=== PATIENT | female | born 1955 | race Caucasian/White ===

== ENCOUNTER 2017-02-18 05:52 | Day surgery (SDC) | payer BC ==
--- NOTE | ~2017-02-18 | EGD ---
EGD REPORT [facility] [address] [place] [id number] NAME: EMILY BEY : [birth year] STATUS : REG [facility]#: [id number] AGE: 61 ADM/REG DATE : 02/18/17 MR#: [id number] REPORT SERV DATE: 02/18/17 DICTATED BY: DATE: REPORT STATUS : Draft [facility]ANSCRIBED BY: [facility] DATE: 02/18/17 [facility] Patient Name: Emily Bey Date of : 1955 Attending MD: BA WARE MD Procedure Date No Time: 02/18/2017 Procedure: Colonoscopy Indications: High risk colon CA surveillance: Personal history multiple (3 or more) adenomas Medicines: Monitored Anesthesia Care Complications: No immediate complications. Procedure: Pre-Anesthesia Assessment: - ASA Grade Assessment: III - A patient with severe systemic disease. After I obtained informed consent, the scope was passed under direct vision. Throughout the procedure, the patient's blood pressure, pulse, and oxygen saturations were monitored continuously. The PCF [id number] was introduced through the anus and advanced to the cecum, identified by appendiceal orifice and ileocecal valve. The colonoscopy was somewhat difficult due to significant looping. Successful completion of the procedure was aided by using manual pressure. The patient tolerated the procedure well. The quality of the bowel preparation was adequate to identify polyps. Findings: The perianal and digital rectal examinations were normal. Two sessile polyps were found in the ascending colon. The polyps were 3 to 12 mm in size. These polyps were removed with a cold snare. Resection and retrieval were complete in piecemeal fashion. No other significant abnormalities were identified in a careful examination of the remainder of the colon. There is no endoscopic evidence of diverticula, inflammation, mass or ulcerations in the entire colon. There was evidence of a prior surgical anastomosis in the distal rectum. This was characterized by healthy appearing mucosa. No additional abnormalities were found on retroflexion. Impression: - Two 8 to 12 mm polyps in the ascending colon. Resected and retrieved in piecemeal fashion. - Surgical anastomosis. Recommendation: - Patient has a contact number available for emergencies. The signs and symptoms of potential delayed EGD REPORT [address] [address] NAME: EMILY BEY : [birth year] STATUS : REG [facility] [place] PAT#: [id number] AGE: 61 ADM/REG DATE : 02/18/17 MR#: [id number] REPORT SERV DATE: 02/18/17 DICTATED BY: DATE: REPORT STATUS : Draft TRANSCRIBED BY: [employer] DATE: 02/18/17 complications were discussed with the patient. Return to normal activities tomorrow. Written discharge instructions were provided to the patient. - Return to previous diet. - Discharge patient to home. - Continue present medications. - Await pathology results. - Repeat colonoscopy in 2 years for surveillance after piecemeal polypectomy. Procedure Code(s): --- Professional --- 82107, Colonoscopy, flexible, proximal to splenic flexure; with removal of tumor(s), polyp(s), or other lesion(s) by snare technique Diagnosis Code(s): --- Professional --- D12.2, Benign neoplasm of ascending colon Z98.0, Intestinal bypass and anastomosis status Z86.010, Personal history of colonic polyps CPT copyright 2013 [employer]. All rights reserved. The codes documented in this report are preliminary and upon him coder review may be revised to meet current compliance requirements. BA WARE MD 02/18/2017 8:56 AM This report has been signed electronically. Number of Addenda: 0 Note Initiated On: 02/18/2017 8:07 AM Scope Withdrawal Time 0 hours 28 minutes 51 seconds [id number] [place] [id number]
[~2017-02-18 05:52] MED LIST: AMITIZA8 MCG PO; ASAB PO; BENTYL10 PO; CALTRAT600 PO; CITRUCEL500 MG PO; COZ50 PO; CRESTOR5 MG PO; CYMBALTA60 PO; EXCEDRIN TENSI1 EACH PO; FLECTOR1.3 % TOP; FLEX PO; FLURBIPROFEN100 MG PO; HUMAPUMP SC; LIBRAX PO; LIPITOR20 PO; LOP25 PO; MACRO50B PO; METHOC750B PO; MOBIC15 MG PO; NEUR100 PO; NEXIUM40 PO; PROBIOTIC PO; T PO; TRAZ100 PO; TRILIPIX135 MG PO; ULTRAM50 PO; VITAMIN D31000 UNIT PO; VITD PO
== END 2017-02-18 23:59 | disposition home or self-care (01) ==
LOC: DMU 05:52
PROVIDERS: Internal Medicine Gastroenterology
PROC: 0DBK8ZX Excision of Ascending Colon, Via Natural or Artificial Opening Endoscopic, Diagnostic (ICD-10-PCS; principal; 2017-02-18 07:30)
DX: Z12.11 Encounter for screening for malignant neoplasm of colon (principal); D12.2 Benign neoplasm of ascending colon; E66.01 Morbid (severe) obesity due to excess calories; I10 Essential (primary) hypertension; K21.9 Gastro-esophageal reflux disease without esophagitis; E11.8 Type 2 diabetes mellitus with unspecified complications; G47.33 Obstructive sleep apnea (adult) (pediatric); M79.7 Fibromyalgia; Z98.0 Intestinal bypass and anastomosis status; Z86.010 Personal history of colon polyps; Z86.73 Personal history of transient ischemic attack (TIA), and cerebral infarction without residual deficits; Z99.89 Dependence on other enabling machines and devices; Z88.2 Allergy status to sulfonamides; Z88.5 Allergy status to narcotic agent; Z79.899 Other long term (current) drug therapy; Z79.4 Long term (current) use of insulin; Z98.41 Cataract extraction status, right eye; Z98.42 Cataract extraction status, left eye; Z90.89 Acquired absence of other organs; Z98.51 Tubal ligation status; Z90.710 Acquired absence of both cervix and uterus; Z98.890 Other specified postprocedural states; Z90.49 Acquired absence of other specified parts of digestive tract
CPT/HCPCS: 82962; 88305; A9270-GY